=== PATIENT | female | born 1940 | race Caucasian/White ===

== ENCOUNTER 2018-08-18 16:03 | Outpatient (REF) | payer MEDICARE, OTHER, SELFPAY ==
[2018-08-18 21:15] LABS: Abs Immature Grans 0.01 k/cumm (0.0-0.09); Absolute Basophil Count 0.01 k/cumm (0.0-0.2); Absolute Eosinophil Count 0.18 k/cumm (0.0-0.7); Absolute Lymphocyte Count 1.19 k/cumm (1.2-3.4); Absolute Monocyte Count 0.46 k/cumm (0.11-0.7); Absolute Neutrophil Count 5.56 k/cumm (1.2-6.7); Basophils % 0.1; Eosinophils % 2.4; HCT 49.1 % (36.0-46.0); Immature Grans % 0.1; Lymphocytes % 16.1; Mean Corp. HGB Concentration 32.6 g/dL (32.0-36.0); Mean Corpuscular Hemoglobin 31.4 pg (27.0-33.0); Mean Corpuscular Volume 96.5 fL (80-95); Mean Platelet Volume 10.9 fL (8.0-11.0); Monocytes % 6.2; Neutrophils % 75.1; Platelet Count 211 x1000/uL (130-400); RBC 5.09 m/cumm (4.00-5.20); RBC Distribution Width 14.7 % (11.7-14.6); White Blood Cell Count 7.41 k/cumm (4.4-10.8)
[2018-08-18 21:27] LABS: ALT 21 U/L (12-78); AST 21 U/L (15-37); Albumin 3.8 g/dL (3.4-5.0); Alkaline Phosphatase 119 U/L (46-116); Anion Gap 10.5 mmol/L (3-11); BUN 19 mg/dL (7-18); CO2 27.5 mmol/L (21.0-32.0); CREATININE 1.12 mg/dL (0.55-1.02); Calcium 9.3 mg/dL (8.5-10.1); Chloride 104 mmol/L (98-107); Cholesterol 241 mg/dL (50-200); Estimated GFR 46.93 (mL/min/1.73m2); Glucose 96 mg/dL (70-100); HDL Cholesterol 69 mg/dL (40-60); LDL CHOLESTEROL 156 mg/dL (<100); Potassium 4.5 mmol/L (3.5-5.1); Sodium 142 mmol/L (136-145); Total Protein 6.8 g/dL (6.4-8.2); Triglyceride 77 mg/dL (30-150)
== END 2018-08-18 16:23 ==
LOC: NCHCN 16:03
PROVIDERS: PCP Family Medicine; Visit Provider Family Medicine
DX: I10 Essential (primary) hypertension (principal)
CPT/HCPCS: 80053; 80061; 83721; 85025

== ENCOUNTER 2018-08-31 15:11 | Outpatient (REF) | payer MEDICARE, OTHER, SELFPAY ==
[2018-08-31 22:27] LABS: Iron 127 ug/dL (50-175); Total Iron Binding Capacity 308 ug/dL (250-450); Transferrin Sat 41 % (15-50)
[2018-08-31 22:57] LABS: ALT 17 U/L (12-78); AST 20 U/L (15-37); Albumin 3.6 g/dL (3.4-5.0); Alkaline Phosphatase 121 U/L (46-116); Bilirubin, Total 1.6 mg/dL (0.2-1.0); Ferritin 55 ng/mL (8-388); Total Protein 6.6 g/dL (6.4-8.2)
[2018-08-31 23:10] LABS: Bilirubin, Direct 0.28 mg/dL (0.00-0.20)
[2018-09-02 12:35] LABS: Hepatitis A Antibody IgM Negative (NEGAT); Hepatitis B Core Antibody Negative (NEGAT); Hepatitis B surface Ag Negative (NEGAT); Hepatitis C Ab w Rflx HCV PCR Negative (NEGAT)
[2018-09-02 13:55] LABS: ANA Interpretation Negative (NEGAT)
[2018-09-02 16:55] LABS: Mitochondrial Ab, M2 <0.1 U
== END 2018-08-31 15:31 ==
LOC: NCHCN 15:11
PROVIDERS: PCP Family Medicine; Visit Provider Family Medicine
DX: R74.8 Abnormal levels of other serum enzymes (principal)
CPT/HCPCS: 80076; 83516; 86704; 86709; 86803; 87340; 82728; 83540; 83550; 86038

== ENCOUNTER 2018-09-13 00:34 | Outpatient (CLI) | payer MEDICARE, OTHER, SELFPAY ==
--- NOTE | 2018-09-13 09:18 | DI.US_ITS ---
SYMPTOM/DIAGNOSIS: ELEVATED LIVER ENZYMES R74.8 ABDOMEN ULTRASOUND: There are no prior comparison exams. The liver appears normal in size and shows normal overall echogenicity. Liver cysts are demonstrated, the largest is posterolaterally in the right lobe measuring 2.3 cm. Stones are noted in the gallbladder. There is no gallbladder wall thickening or biliary dilatation. The pancreas is poorly visualized. Small renal cysts are seen. No stones or hydronephrosis is identified. The aorta and IVC were not well seen. There is no ascites. IMPRESSION: Liver cysts. No evidence of biliary dilatation. Cholelithiasis.
== END 2018-09-13 00:54 ==
PROVIDERS: PCP Family Medicine; Visit Provider Family Medicine
DX: R74.8 Abnormal levels of other serum enzymes (principal); K76.89 Other specified diseases of liver; K80.20 Calculus of gallbladder without cholecystitis without obstruction; N28.1 Cyst of kidney, acquired
CPT/HCPCS: 76700

== ENCOUNTER 2018-10-18 21:34 | Outpatient (REF) | payer MEDICARE, OTHER, SELFPAY ==
[2018-10-18 21:25] LABS: ALT 21 U/L (12-78); AST 19 U/L (15-37); Albumin 3.7 g/dL (3.4-5.0); Alkaline Phosphatase 115 U/L (46-116); Bilirubin, Total 0.8 mg/dL (0.2-1.0); Total Protein 6.6 g/dL (6.4-8.2)
== END 2018-10-18 21:54 ==
LOC: NCHCN 21:34
PROVIDERS: PCP Family Medicine; Visit Provider Family Medicine
DX: R74.8 Abnormal levels of other serum enzymes (principal)
CPT/HCPCS: 80076

== ENCOUNTER 2020-08-08 18:00 | Outpatient (REF) | payer MEDICARE, OTHER, SELFPAY ==
[2020-08-08 22:40] LABS: Abs Immature Grans 0.04 10^3/uL (0.0-0.06); Absolute Basophil Count 0.03 10^3/uL (0.0-0.2); Absolute Eosinophil Count 0.19 10^3/uL (0.0-0.7); Absolute Lymphocyte Count 1.62 10^3/uL (1.2-3.4); Absolute Monocyte Count 0.46 10^3/uL (0.1-0.8); Absolute Neutrophil Count 6.34 10^3/uL (1.2-6.7); Basophils % 0.3; Eosinophils % 2.2; HCT 53.2 % (36.0-46.0); Immature Grans % 0.5; Lymphocytes % 18.7; MCH 30.6 pg (27.0-33.0); MCV 95.9 fL (80-95); MPV 11.8 fL (8.0-11.0); Monocytes % 5.3; Nucleated RBC 0 %; Platelet Count 252 10^3/uL (130-400); RBC 5.55 10^6/uL (3.93-5.22); RDW 13.9 % (11.7-14.6); RDW-SD 49.2 fL; WBC 8.68 10^3/uL (4.4-10.8)
[2020-08-08 22:58] LABS: ALT 17 U/L (14-59); AST 19 U/L (15-37); Albumin 4.1 g/dL (3.4-5.0); Alkaline Phosphatase 125 U/L (46-116); Anion Gap 9.3 mmol/L (3-11); BUN 16 mg/dL (7-18); Bilirubin, Total 1.2 mg/dL (0.2-1.0); CO2 26.7 mmol/L (21.0-32.0); CREATININE 1.24 mg/dL (0.55-1.02); Calcium 9.5 mg/dL (8.5-10.1); Chloride 105 mmol/L (98-107); Estimated GFR 41.52 (mL/min/1.73m2); Glucose 101 mg/dL (74-106); Sodium 141 mmol/L (136-145); TSH (W/Ref FT4) 1.99 uIU/mL (0.36-3.74); Total Protein 7.1 g/dL (6.4-8.2)
== END 2020-08-08 18:20 ==
LOC: NCHCN 18:00
PROVIDERS: PCP Family Medicine; Visit Provider Family Medicine
DX: N93.8 Other specified abnormal uterine and vaginal bleeding (principal)
CPT/HCPCS: 80053; 83735; 84443; 85025

== ENCOUNTER 2020-08-30 01:49 | Outpatient (CLI) | payer MEDICARE, OTHER, SELFPAY ==
--- NOTE | 2020-08-30 08:00 | DI.US_ITS ---
EXAM: US PELVIS TRANSVAGINAL CLINICAL HISTORY: post menopausal bleeding,N95.0 TECHNIQUE: Ultrasound performed using standard protocol. COMPARISON: US US ABDOMEN from 09/13/2018 FINDINGS: Pelvic ultrasound was performed transabdominally and transvaginally. This was a technically difficul t examination. Uterus is enlarged and shows heterogeneous echogenicity. Endometrial stripe is difficult to evaluate in the setting marked heterogeneity but the endometrium may measure up to 3 cm in thickness and is h eterogeneous, markedly abnormal this age group. The ovaries are both enlarged and contain heterogeneous complex masses, about 4 cm in diameter on the right and about 4.4 cm in diameter on left. No gross free pelvic fluid. No hydronephrosis seen on limited scanning of the kidneys. IMPRESSION: Poorly defined but markedly thickened heterogeneous endometrium in a very heterogeneous uterus, findi ngs suspicious for neoplastic disease. Bilateral ovarian masses also noted which are nonspecific but worrisome for malignancy in this age gr oup. Additional evaluation pelvic MRI may be considered for further anatomic evaluation, alternatively tis cliff sampling may be obtained. DATA REPOSITORY:
== END 2020-08-30 02:09 ==
PROVIDERS: PCP Family Medicine; Visit Provider Obstetrics & Gynecology
DX: N95.0 Postmenopausal bleeding (principal); R93.89 Abnormal findings on diagnostic imaging of other specified body structures; N83.8 Other noninflammatory disorders of ovary, fallopian tube and broad ligament
CPT/HCPCS: 76830; 76856

== ENCOUNTER 2020-09-04 13:52 | Outpatient (CLI) | payer MEDICARE, OTHER, SELFPAY ==
[2020-09-04 22:48] LABS: CEA 4.1 ng/mL (See Note)
[2020-09-05 10:41] LABS: CA 125 358 U/mL (<30)
[2020-09-05 17:36] LABS: CA 19-9 8756 U/mL (<35)
== END 2020-09-04 14:12 ==
PROVIDERS: PCP Family Medicine; Visit Provider Obstetrics & Gynecology
DX: R19.09 Other intra-abdominal and pelvic swelling, mass and lump (principal); R97.8 Other abnormal tumor markers
CPT/HCPCS: 36415; 86304; 82378; 86301

== ENCOUNTER 2020-09-04 13:59 | Outpatient (REF) | payer MEDICARE, OTHER, SELFPAY ==
--- NOTE | 2020-09-04 13:20 | PAPFT_PTH ---
PATIENT: Tasha Ellison LOC: N U#:[id number] AGE/SX: 79/F ROOM: RE09/04/[address]: Bela Ledesma DO : 1940 BED: DIS: 09/04/2020 SPEC #: [id number] RECD: 09/04/20 17:43 STATUS: HOWIE REQ #: [id number] TAYLOR: 09/04/20 13:[address]: Bela Ledesma DEPT: [facility], [facility] Cytology RECD BY: Altagracia Michelle ENTERED: 09/04/20 17:43 SP TYPE: PAPFT OTHR DR: Susan Beckford Tissues: 1 - CX/ENDOCX FOR PAP SMEARS Procedures: PAP THIN PREP/[facility] Screening Comments: [id number]
--- NOTE | 2020-09-04 13:20 | ENDOMET_PTH ---
PATIENT: Tasha Ellison LOC: [facility] U#:[id number] AGE/SX: 79/F ROOM: RE09/04/[address]: Bela Ledesma DO : 1940 BED: DIS: 09/04/2020 SPEC #: [id number] RECD: 09/04/20 17:14 STATUS: HOWIE REQ #: [id number] TAYLOR: 09/04/20 13:[address]: Bela Ledesma DEPT: Surgical Specimen RECD BY: Altagracia Michelle ENTERED: 09/04/20 17:15 SP TYPE: Endomet OTHR DR: Susan Beckford Tissues: 1 - ENDOMETRIUM BX/DEONTE Procedures: GROSS AND MICRO LEVEL 4 Comments: [id number]
== END 2020-09-04 14:19 ==
LOC: LBN 13:59
PROVIDERS: PCP Family Medicine; Visit Provider Obstetrics & Gynecology
DX: N95.0 Postmenopausal bleeding (principal); Z12.4 Encounter for screening for malignant neoplasm of cervix; N85.02 Endometrial intraepithelial neoplasia [EIN]; R87.618 Other abnormal cytological findings on specimens from cervix uteri
CPT/HCPCS: 88142; 88305

== ENCOUNTER 2020-09-26 02:46 | Outpatient (CLI) | payer MEDICARE, OTHER, SELFPAY ==
[2020-09-27 14:36] LABS: COVID-19 RT-PCR UVMMC Result Negative (Negative)
== END 2020-09-26 02:47 | disposition home or self-care (01) ==
LOC: LBO 02:46
PROVIDERS: PCP Family Medicine; Visit Provider Family Medicine
DX: Z20.822 Contact with and (suspected) exposure to COVID-19 (principal); Z01.818 Encounter for other preprocedural examination
CPT/HCPCS: U0003; U0005

== ENCOUNTER 2024-02-03 19:56 | Emergency (ER) | payer MEDICARE, OTHER, SELFPAY ==
[2024-02-03 19:49] VITALS: BP 213/109; PULSE 70; RESP 16; TEMP 36.6; O2SAT 98
--- NOTE | 2024-02-03 20:00 | DI.RAD_ITS ---
Exam(s) XR FOREARM RT XR HUMERUS RT EXAM: XR FOREARM RT and XR humerus RT CLINICAL HISTORY: fall, elbow and arm pain. TECHNIQUE: 2D digital imaging was performed of the left humerus and forearm. Five views were obtain ed. AP and lateral views were obtained. COMPARISON: CR RIGHT SHOULDER COMPLETE from 06/10/2017 CR,XR XR HUMERUS RT from 02/03/2024 FINDINGS: BONES: There is an old healed proximal humeral fracture deformity. Degenerative changes are seen at the acromioclavicular joint and the glenohumeral joint. There is an old healed fracture of the midsh aft of the humerus. There is an acute supracondylar fracture present. There is posterior displaceme nt of the distal fracture by a most 1/2 shaft's with. No bony destructive lesion is seen. There are degenerative changes seen at the elbow. Degenerative changes are also seen in the wrist. SOFT TISSUE: There is a elbow effusion present. IMPRESSION: There is an acute displaced supracondylar fracture of the distal humerus. DATA REPOSITORY: RADIATION DOSE DELIVERED:
[2024-02-03] MEDS: Ketorolac 15 MG/ML VIAL IM (20:10)
--- NOTE | 2024-02-03 20:45 | DI.CT_ITS ---
Exam(s) CT UPPER EXTREMITY RT WO EXAM: CT UPPER EXTREMITY RT WO CLINICAL HISTORY: prox and distal humerus deformities. TECHNIQUE: Imaging Protocol: Axial computed tomography images with coronal and sagittal reformatted images were created and reviewed. COMPARISON: CR,XR XR FOREARM RT from 02/03/2024 CR,XR XR HUMERUS RT from 02/03/2024 FINDINGS: Bones: There is an old healed fracture deformity of the proximal humerus. There is a healed fractur e deformity of the midshaft of the humerus. There is an acute supracondylar fracture present. There is posterior displacement of the distal fracture 1 shaft's width. There is a question of a nondispl aced fracture involving the anterior aspect of the radial head (series 6, image 55). Degenerative ch anges are seen at the acromioclavicular joint and the elbow. No lytic or sclerotic lesions are ident ified. Soft Tissues: There is a joint effusion. Note is made of cholelithiasis. IMPRESSION: 1. Displaced supracondylar fracture of the distal humerus. 2. Question of a nondisplaced fracture of the anterior aspect of the radial head (series 6, image 55) . RADIATION DOSE DELIVERED: 364.45mGy.cm Total DLP 364.45mGy.cm Total DLP DATA REPOSITORY: All CT scans at this facility are submitted to the National Radiology Data Registry (NRDR) Dose Index Registry (DIR) with the [employer] ([employer]). RADIATION OPTIMIZATION: All CT scans at this facility use at least one of these dose optimization te chniques: automated exposure control; mA and/or kV adjustment per patient size (includes targeted exa ms where dose is matched to clinical indication); or iterative reconstruction.
--- NOTE | 2024-02-03 20:53 | ED.GENADUL_ITS ---
Discharge Plan Disposition Patient Disposition: Home Condition: Improving Discharge Details Chief Complaint: Orthopedic Clinical Impression: Supracondylar fracture of humerus Primary Care Provider: Susan Beckford ED Provider: Phillip Smith Home Meds and New Rx's Prescriptions: No Action atenolol 50 mg tablet 50 mg PO DAILY cholecalciferol (vitamin D3) 75 mcg (3,000 unit) tablet 75 mcg PO DAILY Discharge Instructions Instructions: Elbow Fracture, Adult ED Additional Instructions: Please follow-up with orthopedic team within a week to discuss operative repair of supracondylar fracture right upper extremity. Use sling as instructed. Please return to the emergency department for any worsening symptoms HPI General Date/Time Provider Initiated Documentation: 02/03/24 19:57 . HPI Narrative: 83-year-old female presents after slip and fall from recliner, right shoulder and right elbow discomfort no other injuries Related Data Home Medications Medication Instructions Recorded Confirmed atenolol 50 mg tablet 50 mg PO DAILY 08/15/20 02/03/24 cholecalciferol (vitamin D3) 75 75 mcg PO DAILY 08/15/20 02/03/24 mcg (3,000 unit) tablet Allergies Allergy/AdvReac Type Severity Reaction Status Date / Time Sulfa (Sulfonamide Allergy Hives Unverified 02/03/24 19:53 Antibiotics) General Stated Complaint: Orthopedic JED: 3 Review of Systems Narrative: Review of Systems Constitutional: negative Eyes: negative ENT: negative Cardiovascular: negative Respiratory: negative Gastrointestinal: negative : negative Musculoskeletal: Shoulder pain, elbow pain Skin: negative Neurologic: negative Psych: negative Exam Narrative Exam Narrative: Physical Examination General: alert, awake, cooperative, resting comfortably, no acute distress HEENT: normocephalic, atraumatic; PERRL, EOM intact, conjunctiva normal; no nasal discharge; moist mucous membranes, oral and pharyngeal mucosa normal, tolerating secretions Neck: supple, trachea midline; full ROM Chest: normal to inspection Respiratory: normal respiratory effort, speaking in full sentences Skin: no lesions, rashes or trauma appreciated Neuro: AAOx3, normal speech, moving all extremities Extremities: Decreased range of motion right shoulder and right elbow, tenderness to proximal humerus and distal humerus, warm well-perfused extremity radial pulse intact sensate median radial and ulnar nerve distribution, flexion extension wrist hand and fingers intact Psych: Appropriate mood and affect Course Vital Signs Vital signs: Vital Signs Temperature 36.6 C 06/19/24 19:49 Pulse 70 02/03/24 19:49 Respiratory Rate 16 02/03/24 19:49 Blood Pressure 213/109 H 02/03/24 19:49 Pulse Oximetry 98 02/03/24 19:49 Temperature 36.6 C 02/03/24 19:49 Temperature Source Temporal Artery Scan 02/03/24 19:49 Pulse 70 02/03/24 19:49 Respiratory Rate 16 02/03/24 19:49 Respiratory Effort Normal, Non-Labored 02/03/24 19:54 Blood Pressure 213/109 H 02/03/24 19:49 Blood Pressure Position Supine 02/03/24 19:49 Pulse Oximetry 98 02/03/24 19:49 Oxygen Delivery Method Room Air 02/03/24 19:49 Oxygen Flow Rate 0 02/03/24 19:49 Pain Level 4 02/03/24 19:49 Medical Decision Making 83-year-old female presents after slip and fall from recliner proximal humerus and distal humerus discomfort on examination, held in flexion at elbow, soft compartments radial pulse intact sensate median radial and ulnar nerve distribu tion intact, flexion and extension at elbow and shoulder limited by pain, flexion extension of wrist and fingers intact, concern for distal humerus fracture muscles consider proximal humerus fracture versus dislocation will obtain x-ray of humerus and forearm, will provide analgesia. 00: 15 discussed case with on-call orthopedic physician Dr. Mike who recommends follow-up at tertiary care center for repair of supracondylar fracture. Patient placed in posterior slab and sling. Resting comfortably no acute distress neurovascularly intact. Home care instructions and return precautions Quality:SDOH Health Related Social Needs: No Data to Display PFSH All Active Problems (Updated 02/04/24 @ 00:16 by Phillip Smith MD) Supracondylar fracture of humerus (Acute) Endometrial thickening on ultrasound (Acute) Ovarian mass, right (Acute) Ovarian mass, left (Acute) Post-menopausal bleeding (Acute) Social History (Updated 08/15/20 @ 14:28 by Sumi Alves LPN) Smoking/Tobacco Use Status: Never Second Hand Exposure: Yes Smoking risk assessment performed?: Yes Alcohol Intake: current Alcohol Intake frequency: holidays/special occasions only Drug use: Never Substance use type: does not use Housing: house Number of Children: 4 What is your relationship status?: Panel score (0-1 are the most socially isolated patients): 0 Seatbelt use: always Do you feel safe at home: Yes Do you feel safe in your relationship?: Yes History History 3 Para Hx # Term Pregnancies 3 Multiple births Hx # Pregnancies Ectopic pregnancies AB induced Hx Number of Living Children 4 AB spontaneous
[2024-02-03] MEDS: fentaNYL 100 MCG/2 ML VIAL 25 MCG IM (21:35)
--- NOTE | 2024-02-03 22:34 | DI.VRAD_ITS ---
Addendum created by Edson Smith MD on 02/03/2024 10:39:54 PM EDT: 4 mm ossific density adjacent to lateral condyle may be avulsive in origin. Initial report created on 02/03/2024 10:34:07 PM EDT: PROCEDURE INFORMATION: Exam: CT Right Upper Extremity Without Contrast, Upper Arm Exam date and time: 02/03/2024 8:53 PM Age: 83 years old Clinical indication: Injury or trauma; Fall; Blunt trauma (contusions or hematomas); Arm, upper; Right; Injury details: Prox and distal humerus deformities TECHNIQUE: Imaging protocol: Computed tomography of the right upper extremity without contrast. Exam focused on the upper arm. Total images: 2173 COMPARISON: CR XR HUMERUS RT 02/03/2024 8:42 PM FINDINGS: Bones/joints: Acute distal humeral supracondylar fracture with 1 shaft width anterior displacement proximal fracture fragment. Equivocal acute nondisplaced anterior radial head fracture in the sagittal view. Healed mid humeral shaft fracture with residual deformity. Old impacted fracture humeral neck. Elbow effusion. Soft tissues: Soft tissue swelling surrounding the distal humerus. IMPRESSION: Acute displaced supracondylar fracture. Dictated and Authenticated by: Edson Smith MD. Ordering:DAVID Fisher MD
--- NOTE | 2024-02-03 22:43 | DI.VRAD_ITS ---
PROCEDURE INFORMATION: Exam: XR Right Forearm Exam date and time: 02/03/2024 8:39 PM Age: 83 years old Clinical indication: Other: Fall, prox humerus and elbow pain TECHNIQUE: Imaging protocol: Radiologic exam of the right forearm. Views: 2 views. Total images: 3 COMPARISON: No relevant prior studies available. FINDINGS: Bones/joints: Acute displaced distal humeral supracondylar fracture. Small avulsion fracture lateral condyle. Elbow effusion. Radial head osteophytes. Osteopenia. Osteoarthritis visualized hand. Soft tissues: Soft tissue swelling at the elbow. IMPRESSION: Acute distal humeral fracture. Dictated and Authenticated by: Edson Smith MD. Ordering:DAVID Fisher MD
--- NOTE | 2024-02-03 22:45 | DI.VRAD_ITS ---
PROCEDURE INFORMATION: Exam: XR Right Humerus Exam date and time: 02/03/2024 8:42 PM Age: 83 years old Clinical indication: Other: Fall, prox humerus and elbow pain TECHNIQUE: Imaging protocol: Radiologic exam of the right humerus. Views: 2 or more views. Total images: 2 COMPARISON: CR RIGHT SHOULDER COMPLETE 06/10/2017 10:29 AM FINDINGS: Bones/joints: Partially visualized acute distal humeral fracture. Old fracture deformities involving the humeral shaft and neck. Soft tissues: Unremarkable. IMPRESSION: Acute distal humeral fracture. Dictated and Authenticated by: Edson Smith MD. Ordering:DAVID Fisher MD
[2024-02-04] MEDS: oxyCODONE 5 MG TAB PO (00:27)
[2024-02-04 00:28] VITALS: BP 168/72; PULSE 72; RESP 16; O2SAT 98
--- NOTE | 2024-02-04 00:46 | NUR.NOTE ---
Referral to Care Management to refer patient to [facility] Orthopedics within a week for Supracondylar fx of the right humerus.Nursing Note:
== END 2024-02-04 00:29 | disposition home or self-care (01) ==
PROVIDERS: Emergency Provider Emergency Medicine; PCP Family Medicine
DX: S42.411A Displaced simple supracondylar fracture without intercondylar fracture of right humerus, initial encounter for closed fracture (principal); I10 Essential (primary) hypertension; W07.XXXA Fall from chair, initial encounter
CPT/HCPCS: 96372; 99284; 73060; 73090; 73200; 99283; J1885; J3010

== ENCOUNTER 2024-03-31 16:01 | Outpatient (CLI) | payer MEDICARE, OTHER, SELFPAY ==
--- NOTE | 2024-03-31 15:43 | DI.RAD_ITS ---
Exam(s) XR ELBOW RT LIMITED EXAM: XR ELBOW RT LIMITED CLINICAL HISTORY: fracture follow up. TECHNIQUE: 2D digital imaging was performed. COMPARISON: CR XR ELBOW RIGHT 1-2 VIEWS from 02/17/2024 CR XR ELBOW RIGHT 1-2 VIEWS from 03/03/2024 FINDINGS: Again noted is the previously present supracondylar fracture of the distal humerus. Fracture line st ill visible. No further displacement evident. Multiple small calcific densities are seen adjacent t o the medial epicondyle, slightly more so than previous although this may be projectional. These are related to the medial epicondyle and common flexor tendon. There are mild degenerative changes in t he elbow joint. No large joint effusion. There is no swelling of the olecranon bursa. Incidentally noted is a higher up in the midshaft of the humerus is a healed fracture site. IMPRESSION: Fracture site in the distal humerus epicondylar region exhibits minimal change from 03/03/2024 and . DATA REPOSITORY: RADIATION DOSE DELIVERED:
== END 2024-03-31 16:02 | disposition home or self-care (01) ==
LOC: DIORS 16:01
PROVIDERS: PCP Family Medicine; Referring Provider Family Medicine; Visit Provider Student in an Organized Health Care Education/Training Program
DX: S42.401D Unspecified fracture of lower end of right humerus, subsequent encounter for fracture with routine healing; W19.XXXD Unspecified fall, subsequent encounter
CPT/HCPCS: 99213; 73070

== ENCOUNTER 2024-05-12 15:31 | Outpatient (CLI) | payer MEDICARE, OTHER, SELFPAY ==
--- NOTE | 2024-05-12 14:30 | DI.RAD_ITS ---
Exam(s) XR ELBOW RT LIMITED EXAM: XR ELBOW RT LIMITED CLINICAL HISTORY: F/U FRACTURE. TECHNIQUE: 2D digital imaging was performed. COMPARISON: CR XR ELBOW RT LIMITED from 03/31/2024 FINDINGS: Two views: Again noted is the visible trans epicondylar fracture line in the distal humerus, the fracture line s till being visible but without further displacement. Multiple calcifications are again noted adjacent to the medial epicondyle, most probably related to t he common flexor tendon. The smaller calcification is noted on the opposite-lateral aspect adjacent to the lateral epicondyle and probably related to the common extensor tendon. There is no obvious fracture of the radial head and neck although there are degenerative changes-narr owing again noted on the lateral aspect of the elbow joint between the radial head and capitellum. N o osteochondral defects at the capitellum nor at the level of the trochlea although there are margina l osteophytes off the outer aspect of the trochlea and the adjacent lateral aspect of the coracoid pr ocess of the proximal ulna. Also again noted on the peripheral aspect of the field of view is a healed fracture in the midshaft o f the humerus which is only partially included in the field of view. There is no large elbow joint effusion. There is no swelling of the olecranon bursa. No radiopaque foreign bodies. IMPRESSION: Similar findings to previous. The trans epicondylar distal humerus fracture line is still evident. No significant displacement. Other findings as above. DATA REPOSITORY: RADIATION DOSE DELIVERED:
== END 2024-05-12 15:32 | disposition home or self-care (01) ==
LOC: DIORS 15:32
PROVIDERS: PCP Family Medicine; Referring Provider Family Medicine; Visit Provider Physician Assistant
DX: S42.401D Unspecified fracture of lower end of right humerus, subsequent encounter for fracture with routine healing (principal); X58.XXXD Exposure to other specified factors, subsequent encounter
CPT/HCPCS: 99213; 73070

== ENCOUNTER 2024-06-06 19:14 | Outpatient (REF) | payer MEDICARE, SELFPAY ==
[2024-06-06 15:36] LABS: Abs Immature Grans 0.03 10^3/uL (0.0-0.06); Absolute Basophil Count 0.02 10^3/uL (0.0-0.2); Absolute Eosinophil Count 0.21 10^3/uL (0.0-0.7); Absolute Lymphocyte Count 2.06 10^3/uL (1.2-3.4); Absolute Monocyte Count 0.66 10^3/uL (0.1-0.8); Absolute Neutrophil Count 4.89 10^3/uL (1.2-6.7); Basophils % 0.3 %; Eosinophils % 2.7 %; HGB 15.7 g/dL (11.2-15.7); Immature Grans % 0.4 %; Lymphocytes % 26.2 %; MCHC 32.7 % (32.0-36.0); MCV 95 fL (80-95); MPV 10.5 fL (8.0-11.0); Monocytes % 8.4 %; Platelet Count 229 10^3/uL (130-400); RBC 5.07 10^6/uL (3.93-5.22); WBC 7.87 10^3/uL (4.4-10.8)
[2024-06-06 16:20] LABS: ALT 19 U/L (14-59); AST 24 U/L (15-37); Albumin 3.7 g/dL (3.4-5.0); Alkaline Phosphatase 137 U/L (46-116); Anion Gap 11.7 mmol/L (3-11); BUN 12 mg/dL (7-18); Bilirubin, Total 1.31 mg/dL (0.2-1.0); CO2 26.3 mmol/L (21.0-32.0); Calcium 9.1 mg/dL (8.5-10.1); Calculated LDL 131 mg/dL (<100); Chloride 107 mmol/L (98-107); Cholesterol 223 mg/dL (<200); Estimated GFR 55.21 (mL/min/1.73m2); Glucose 102 mg/dL (74-106); HDL Cholesterol 77 mg/dL (40-60); Potassium 4.5 mmol/L (3.5-5.1); Sodium 145 mmol/L (136-145); Total Protein 6.7 g/dL (6.4-8.2); Triglyceride 78 mg/dL (<150); Vitamin D 25 Total 61.2 ng/mL (30-100)
== END 2024-06-06 19:15 | disposition home or self-care (01) ==
LOC: NCHCN 19:14
PROVIDERS: PCP Family Medicine; Visit Provider Family Medicine
DX: I10 Essential (primary) hypertension (principal); Z00.00 Encounter for general adult medical examination without abnormal findings
CPT/HCPCS: 80053; 80061; 82306; 85025